=== PATIENT | female | born 1960 | race Caucasian/White ===

== ENCOUNTER 2020-08-11 08:00 | Outpatient (CLI) | payer OTHER ==
--- NOTE | 2020-08-11 15:56 | XRAY Report ---
PROCEDURE: Ankle 3 View RT INDICATIONS: RIGHT ANKLE PAIN TECHNIQUE: 3 views of the ankle were acquired. COMPARISON: None. FINDINGS: Bones: There is a transverse fracture involving the tip of the lateral malleolus without significant displacement. An ossicle adjacent to the medial malleolus is likely sequelae of old injury. Ankle mo rtise is normally aligned. No suspicious bony lesions. Calcaneal spurring. Soft tissues: Small tibiotalar joint effusion. Achilles tendon appears normal. Mild soft tissue swe lling. IMPRESSION: 1. Nondisplaced transverse fracture of the tip of the lateral malleolus. Reviewed by: Michael Hadley MD on 08/11/2020 3:54 PM PDT Approved by: Michael Hadley MD on 08/11/2020 3:54 PM PDT Station ID: [id number]
== END 2020-08-11 23:59 | disposition home or self-care (01) ==
LOC: DI.S 08:00 → MERGE 10:11 → DI.S 23:59
PROVIDERS: ATTEND Physician Assistant
DX: M25.571 Pain in right ankle and joints of right foot (principal); S82.64XA Nondisplaced fracture of lateral malleolus of right fibula, initial encounter for closed fracture

== ENCOUNTER 2020-09-21 07:21 | Outpatient (CLI) | payer OTHER ==
--- NOTE | 2020-09-21 12:10 | Ultrasound Report ---
PROCEDURE: Abdomen Complete INDICATIONS: HEPATOSPLENOMEGALY TECHNIQUE: Real-time scanning was performed of the abdominal and retroperitoneal organs, with image documentatio n. COMPARISON: None. FINDINGS: Liver: Liver is mildly enlarged, measuring approximately 19.6 cm. There is diffusely increased hepat ic echogenicity with coarse sonographic echotexture. Evaluation for focal hepatic lesions is limited due to parenchymal echogenicity. Gallbladder: There are multiple mobile echogenic shadowing gallstones demonstrated in the gallbladder . No focal bladder wall thickening or pericholecystic fluid. Biliary ducts: Intrahepatic bile ducts are non-dilated. Extrahepatic bile duct caliber measures up to 4 mm. Normal is 6-7 mm or less in diameter, or 10 mm or less post-cholecystectomy. Pancreas: Visualized portions of the pancreas are sonographically normal. Spleen: Spleen appears within normal size limits. Kidneys: Right kidney measures 10.5 cm long; left kidney measures 12.2 cm long. No hydronephrosis. Aorta: Visualized aorta is normal in caliber at less than 3 cm. Iliacs: Proximal common iliac arteries are normal in caliber at less than 2.5 cm. IVC: Intrahepatic inferior vena cava is patent. Miscellaneous: No free abdominal fluid. IMPRESSION: 1. Mild hepatomegaly with increased hepatic echogenicity suggestive of steatosis but other infiltrati ve processes cannot be excluded. 2. Cholelithiasis without definite evidence of cholecystitis. Reviewed by: Tre James MD on 09/21/2020 12:08 PM PDT Approved by: Tre James MD on 09/21/2020 12:08 PM PDT Station ID: [id number]
== END 2020-09-21 07:22 | disposition home or self-care (01) ==
LOC: DI 07:21
PROVIDERS: ATTEND Internal Medicine
DX: R16.0 Hepatomegaly, not elsewhere classified (principal); K80.20 Calculus of gallbladder without cholecystitis without obstruction

== ENCOUNTER 2021-05-11 08:56 | Day surgery (SDC) | payer OTHER ==
[2021-05-11] MEDS ORDERED: PROPOFOL 500 MG/50 ML 500 MG/50 ML VIAL ONE (09:44)
[2021-05-11] MEDS ORDERED: LACTATED RINGERS 1,000 ML IV ONE ×2 (09:54→10:53)
--- NOTE | 2021-05-11 10:09 | ANESTHESIA ---
Pre-Anesthesia VS, & Labs - Diagnosis screening - Procedure colonoscopy Vital Signs: Temp Pulse Resp BP Pulse Ox 36.1 C L 96 16 147/85 H 97 05/11/21 09:30 05/11/21 09:30 05/11/21 09:30 05/11/21 09:30 05/11/21 09:30 Height: 5 ft 5.5 in Weight (kg): 109.5 kg Body Mass Index: 39.5 BMI Classification: Obese - NPO >8 hours - Is Patient ?: No - Lab Results Lab results reviewed: Yes Home Medications and Allergies No Known Home Medications 09/27/20 Allergies/Adverse Reactions: Allergies Allergy/AdvReac Type Severity Reaction Status Date / Time Sulfa (Sulfonamide Allergy Unknown Verified 01/17/21 14:32 Antibiotics) Anes History & Medical History - Anesthetic History Anesthesia Complications: reports: No previous complications Family history of Anesthesia Complications: Denies Family history of Malignant Hyperthermia: Denies - Medical History Cardiovascular: reports: None Pulmonary: reports: None Gastrointestinal: reports: None Urinary: reports: None Neuro: reports: None Musculoskeletal: reports: None Endocrine/Autoimmune: reports: None Blood Disorders: reports: None Skin: reports: None Smoking Status: Never smoker Exam General: Alert, Oriented x3, Cooperative, No acute distress Dental: WNL Mouth Openin Fingerbreadth Neck Mobility: Normal Mallampati classification: II Plan Anesthesia Type: General, Total IV Consent for Procedure(s) Verified and Reviewed: Yes Code Status: Attempt Resuscitation ASA classification: 2-Mild systemic disease Is this case an emergency?: No
--- NOTE | 2021-05-11 10:20 | HISTORY & PHYSICAL EXAMINATION ---
Chief Complaint - Chief Complaint Chief Complaint: here for colon cancer screening History of Present Illness - History Obtained From Records Reviewed: yes History obtained from: pt Exam Limitations: none - History of Present Illness HPI Comment/Other: Here for routine colon cancer screening. no problems History - Past Medical History Cardiovascular: reports: None Respiratory: reports: None Neuro: reports: None Endocrine/Autoimmune: reports: None GI: reports: None : reports: None HEENT: reports: None Musculoskeletal: reports: None Derm: reports: None MRSA Hx?: No Meds/Allgy - Home Medications Home Medications: Ambulatory Orders Medication Instructions Recorded Confirmed No Known Home Medications 09/27/20 05/10/21 - Allergies Allergies/Adverse Reactions: Allergies Allergy/AdvReac Type Severity Reaction Status Date / Time Sulfa (Sulfonamide Allergy Unknown Verified 01/17/21 14:32 Antibiotics) Review of Systems - Other Findings Other Findings: 10 pt ros as above otherwise unremarkable Exam - Vital Signs Vital Signs: Vital Signs x48h Temp Pulse Resp BP Pulse Ox 05/11/21 09:30 36.1 C L 96 16 147/85 H 97 - Physical Exam General Appearance: positive: No acute distress, Alert Eyes Bilateral: positive: PERRL, EOMI, No scleral icterus ENT: positive: No signs of dehydration Neck: positive: No JVD Respiratory: positive: No respiratory distress, Breath sounds nml Cardiovascular: positive: Regular rate & rhythm Abdomen: positive: Non-tender, No distention Neurologic/Psychiatric: positive: Oriented x3 Conclusion/Plan - Problem List (1) Colon cancer screening Conclusion/Plan: plan colonoscopy. parq held and consent obtained - Lab Results Lab results reviewed: Yes
[2021-05-11] MEDS ORDERED: PROPOFOL 200 MG/20 ML VIAL IVP ONE (10:57)
[2021-05-11 12:14] VITALS: BP 119/87
--- NOTE | 2021-05-11 15:00 | ANESTHESIA POST OP EVALUATION ---
Anesthesia Post Eval - Post Anesthesia Eval Vitals: Last Vital Signs Temp 36.1 C L 05/11/21 11:35 Pulse 86 05/11/21 11:35 Resp 16 05/11/21 11:35 BP 119/87 H 05/11/21 11:35 Pulse Ox 99 05/11/21 11:35 CV Function Including HR & BP: Stable Pain Control: Satisfactory Nausea & Vomiting: Negative Mental Status: Baseline Respiratory Status: Airway Patent Hydration Status: Satisfactory Anesthesia Complications: None
== END 2021-05-11 08:57 | disposition home or self-care (01) ==
LOC: SDS 08:56
PROVIDERS: ATTEND Surgery
PROC: 0DBL8ZZ Excision of Transverse Colon, Via Natural or Artificial Opening Endoscopic (ICD-10-PCS; 2021-05-11)
PROC: 0DBH8ZZ Excision of Cecum, Via Natural or Artificial Opening Endoscopic (ICD-10-PCS; principal; 2021-05-11 10:30)
DX: Z12.11 Encounter for screening for malignant neoplasm of colon (principal); D12.0 Benign neoplasm of cecum; D12.3 Benign neoplasm of transverse colon; K57.30 Diverticulosis of large intestine without perforation or abscess without bleeding; E66.9 Obesity, unspecified; Z68.39 Body mass index [BMI] 39.0-39.9, adult
CPT/HCPCS: 45380; J7120